=== PATIENT | male | born 1945 | race Caucasian/White ===

== ENCOUNTER 2020-01-14 22:35 | Inpatient (IN) | payer MEDICARE, BC ==
[2020-01-14] MEDS ORDERED: Aspirin 81 mg CHEW TAB* 81 MG TAB.CHEW PO ONE (22:46)
[2020-01-14] MEDS ORDERED: Nitroglycerin TAB 0.4 MG* 0.4 MG TAB ONE (22:46)
[2020-01-14] MEDS ORDERED: Heparin for STEMI(*) 5,000 UNITS/ML 1 ML VIAL IV ONE ×2 (22:46→22:47)
[2020-01-14] MEDS ORDERED: Aspirin 81 mg CHEW TAB* 81 MG TAB.CHEW ONE (22:46)
[2020-01-14] MEDS ORDERED: Morphine INJ* 10 MG/ML 1 ML CARPUJECT IV ONE (22:46)
[2020-01-14] MEDS ORDERED: nitroGLYCERIN DRIP* 25,000 MCG in PREMIX* 0 ML IV ONE (22:46)
[2020-01-14] MEDS ORDERED: Ticagrelor* 90 MG TAB PO ONE ×2 (22:46→22:47)
--- NOTE | 2020-01-14 22:50 | ED ---
HPI Chest Pain - HPI Summary HPI Summary: This pt is a 74 Y/O M presenting to [facility] with a CC of CP that began this morning when he woke up and has made him unable to ambulate. He states that the pain has been constant throughout the day. The pain worsened tonight at 2200 is currently rated a 10/10 he states that the pain has become diffuse. He states that he has had nausea, SOB, and chills without any vomiting or diaphoresis. He states no aggravating or alleviating factors. He states that he has a PMHx of cardiac disease but denies any PMHx of MIs. - History of Current Complaint Chief Complaint: EDChestPainROMI Time Seen by Provider: 01/14/20 22:42 Hx Obtained From: Patient Onset/Duration: Started Hours Ago, Still Present, Worse Since - onset Timing: Constant, Lasting Hours Initial Severity: Mild Current Severity: Severe Pain Intensity: 10 Pain Scale Used: 0-10 Numeric Chest Pain Location: Diffuse Chest Pain Radiates: No Aggravating Factor(s): Nothing Alleviating Factor(s): Nothing Associated Signs and Symptoms: Positive: Chest Pain, Shortness of Breath, Chills , Nausea. Negative: Diaphoresis, Vomiting - Additional Pertinent History Primary Care Physician: AIDEN - Allergy/Home Medications Allergies/Adverse Reactions: Allergies Allergy/AdvReac Type Severity Reaction Status Date / Time No Known Allergies Allergy Verified 04/18/16 17:10 PMH/Surg Hx/FS Hx/Imm Hx Previously Healthy: Yes Endocrine/Hematology History: Denies: Hx Diabetes Cardiovascular History: Reports: Hx Angina Denies: Hx Coronary Artery Disease, Hx Hypercholesterolemia, Hx Hypertension , Hx Myocardial Infarction, Hx Pacemaker/ICD, Hx Valvular Heart Disease Respiratory History: Denies: Hx Asthma, Hx Chronic Obstructive Pulmonary Disease (COPD) Musculoskeletal History: Reports: Hx Back Problems Sensory History: Reports: Hx Contacts or Glasses Denies: Hx Hearing Aid Opthamlomology History: Reports: Hx Contacts or Glasses Neurological History: Reports: Other Neuro Impairments/Disorders - dizziness Psychiatric History: Denies: Hx Panic Disorder - Cancer History Cancer Type, Location and Year: PROSTATE CA 2002 Hx Chemotherapy: No Hx Radiation Therapy: No - Surgical History Surgical History: Yes Surgery Procedure, Year, and Place: PROSTATECTOMY. TONSILS - Immunization History Immunizations Up to Date: Yes Infectious Disease History: Denies: Hx of Known/Suspected MRSA - Social History Occupation: Employed Full-time Lives: With Family Alcohol Use: Occasionally Hx Substance Use: No Substance Use Type: Reports: None Hx Tobacco Use: No Smoking Status (MU): Never Smoked Tobacco Review of Systems Positive: Chills. Negative: Skin Diaphoresis Positive: Chest Pain Positive: Shortness Of Breath Positive: Nausea. Negative: Vomiting All Other Systems Reviewed And Are Negative: Yes Physical Exam - Summary Physical Exam Summary: Constitutional: Well-developed, Well-nourished, Alert. (-) Distressed Skin: Warm, Dry HENT: Normocephalic; Atraumatic Eyes: Conjunctiva normal Neck: Musculoskeletal ROM normal neck. (-) JVD, (-) Stridor, (-) Tracheal deviation Cardio: Rhythm regular, rate normal, Heart sounds normal; Intact distal pulses; The pedal pulses are 2+ and symmetric. Radial pulses are 2+ and symmetric. (-) Murmur Pulmonary/Chest wall: Effort normal. (-) Respiratory distress, (-) Wheezes, (-) Rales Abd: Soft, (-) tenderness, (-) Distension, (-) Guarding, (-) Rebound Musculoskeletal: (-) Edema Lymph: (-) Cervical adenopathy Neuro: Alert, Oriented x3 Psych: Mood and affect Normal Triage Information Reviewed: Yes Vital Signs On Initial Exam: Temp Pulse Resp BP SpO2 FiO2 97.2 F 60 19 158/96 92 01/14/20 22:45 01/14/20 22:45 01/14/20 22:45 01/14/20 22:45 01/14/20 22:45 Vital Signs Reviewed: Yes Procedures - Sedation Patient Received Moderate/Deep Sedation with Procedure: No Diagnostics - Laboratory Result Diagrams: 01/16/20 04:35 01/17/20 04:29 Lab Statement: Any lab studies that have been ordered have been reviewed, and results considered in the medical decision making process. - Radiology CXR Radiology Interpretation Completed By: ED Physician Summary of Radiographic Findings: No acute processes. Pending offical review. - EKG 2240 Cardiac Rate: NL - [address] Segment: Other - elevation V1-V3 with Q waves in V2 and V3 Summary of EKG Findings: EKG at 2240 shows Sinus arrhythmia at a rate of [address] elevations in leads V1-V3 with Q waves in V2 and V3. This is an acute STEMI with no reciprocal depressions. Interpreted by Dr. Ortiz at 01/14/2020 2241. Chest Pain Course/Dx - Course Course Of Treatment: This pt is a 74 Y/O M presenting to [facility] with a CC of CP that began this morning when he woke up and has made him unable to ambulate. He states that the pain has been worsening throughout the day and is currently rated a 10/10. He states that he has had nausea, SOB, and chills without any vomiting or diaphoresis. His PE found no acute abnormalities. EKG at 2240 shows Sinus arrhythmia at a rate of [address] elevations in leads V1-V3 with Q waves in V2 and V3. This is an acute STEMI with no reciprocal depressions. Upon arrival to [facility] a STEMI was called at 224 and the pt was immediately given the following medications: ASA 324 mg, Nitro, Morphine, Heparin, and Brilinta. CXR shows no acute processes. Dr. Moreau, coding clerks supervisor , was consulted at 2250 and agreed with the current plan of care. He stated that he will be present in the ED to see the pt. He admitted the pt for further work up at 2319. His Dx is an anterior wall STEMI. - Diagnoses Provider Diagnoses: ST elevation myocardial infarction (STEMI) of anterior wall During the Visit The Following Alert/Code Occurred: STEMI - 2244 - Provider Notifications Discussed Care Of Patient With: Flako Moreau Time Discussed With Above Provider: 23:02 Instructed by Provider To: Admit As Inpatient Admit/Transition Orders Completed By ED Provider: Yes - Critical Care Time Critical Care Time: 30-74 min - 30 minutes Discharge ED - Sign-Out/Discharge Documenting (check all that apply): Patient Departure - admitted - Discharge Plan Condition: Stable Disposition: ADMITTED TO [facility] - Billing Disposition and Condition Condition: STABLE Disposition: Admitted to [facility] - Attestation Statements Document Initiated by Logan: Yes Documenting Scribe: Steffen Loera Provider For Whom Logan is Documenting (Include Credential): Mauricio Ortiz MD Scribe Attestation: Steffen Jorgensen scribed for Mauricio Ortiz MD on 01/18/20 at 1920. Scribe Documentation Reviewed: Yes Provider Attestation: The documentation as recorded by the Steffen atkins accurately reflects the service I personally performed and the decisions made by me, Mauricio Ortiz MD Status of Logan Document: Viewed
[2020-01-14] MEDS ORDERED: Morphine 10 MG/ML VIAL (1 ml) ONE (22:55)
[2020-01-14] MEDS ORDERED: Morphine 10 MG/ML VIAL (1 ml) IV ONE (22:57)
[2020-01-14 22:59] LABS: ABS Eosinophils 0.1 10^3/ul (0-0.6); ABS Lymphocytes 1.3 10^3/ul (1.0-4.8); ABS Monocytes 0.8 10^3/ul (0-0.8); ABS Neutrophils 7.7 10^3/ul (1.5-7.7); Eosinophil % 1.3 %; Hematocrit 47 % (42-52); Hemoglobin 16.3 g/dL (14.0-18.0); Lymphocyte % 12.8 %; Mean Corpuscular HGB Conc 35 g/dL (31-36); Mean Corpuscular Hemoglobin 32 pg (27-31); Mean Corpuscular Volume 92 fL (80-94); Mean Platelet Volume 10.6 fL (7.4-10.4); Nucleated Red Blood Cells % 0.1; Platelet Count 167 10^3/uL (150-450); Red Blood Count 5.11 10^6 /uL (4.18-5.48); Red Cell Distribution Width 13 % (10-15); White Blood Count 9.9 10^3/uL (3.5-10.8)
[2020-01-14] MEDS ORDERED: Heparin(*) 1000 UNIT/ML 10 ML VIAL CATH LAB IV ONE (23:05)
[2020-01-14] MEDS ORDERED: VERAPAMIL 2.5 MG/ML 2 ML VIAL ** 5 mg/2 ml ONE (23:05)
[2020-01-14] MEDS ORDERED: Lidocaine 1% INJ* 10 MG/ML 30 ML SDV ONE (23:06)
[2020-01-14] MEDS ORDERED: nitroGLYCERIN DRIP* 25,000 MCG/250 ML BTL ONE (23:06)
[2020-01-14] MEDS ORDERED: Heparin 2 UNITS/ML IVPREMIX* 3,000 ML IV ONE (23:06)
[2020-01-14 23:08] LABS: Activated Partial Thrombo Time 31.1 seconds (26.0-38.0); INR 1.07 (0.82-1.09)
[2020-01-14 23:17] LABS: Albumin 4.5 g/dL (3.2-5.2); CO2 Carbon Dioxide 28 mmol/L (22-32); Calcium 9.8 mg/dL (8.6-10.3); Chloride 99 mmol/L (101-111); Sodium 138 mmol/L (135-145)
[2020-01-14 23:22] LABS: CKMB ng/mL 14.6 ng/mL (0.6-6.3)
[2020-01-14 23:23] LABS: ALT 16 U/L (7-52); Albumin/Globulin Ratio 1.4 (1-3); Alkaline Phosphatase 70 U/L (34-104); BUN/Creatinine Ratio 14.2 (8-20); Blood Urea Nitrogen 17 mg/dL (6-24); EGFR African American 71.2 (>60); EGFR Non-African American 58.9 (>60); Globulin 3.2 g/dL (2-4); Glucose 131 mg/dL (70-100); LDL Cholesterol Direct 132 mg/dL; Total Protein 7.7 g/dL (6.4-8.9); Troponin I 0.55 ng/mL (<0.03)
[2020-01-14] MEDS ORDERED: Ondansetron INJ* 2 MG/ML VIAL ONE (23:32)
[2020-01-14] MEDS ORDERED: fentaNYL* 50 MCG/ML 2 ML VIAL (100 MCG VIAL) ONE (23:32)
[2020-01-14] MEDS ORDERED: Midazolam* 1 MG/ML 5 ML VIAL (5 MG) ONE (23:32)
[2020-01-14 23:56] LABS: AST 23 U/L (13-39); Anion Gap 11 mmol/L (2-11); Potassium 4.3 mmol/L (3.5-5.0)
[2020-01-14] MEDS ORDERED: Iohexol 300 (CONTRAST) 10 ML SDV ONE (23:57)
[2020-01-15] MEDS ORDERED: Iodixanol 320 (CONTRAST) 100 ML SDV ONE (00:09)
[2020-01-15] MEDS ORDERED: Bivalirudin(*) 250 MG VIAL ONE (00:19)
[2020-01-15] MEDS ORDERED: Zolpidem TAB* 5 MG PO PRN (00:32)
[2020-01-15] MEDS ORDERED: Docusate CAP* 100 MG PO PRN (00:32)
[2020-01-15] MEDS ORDERED: Ondansetron INJ* 2 MG/ML VIAL IV PRN (00:32)
[2020-01-15] MEDS ORDERED: Acetaminophen TAB* 325 MG PO PRN (00:32)
[2020-01-15] MEDS ORDERED: Nitroglycerin TAB 0.4 MG* 0.4 MG TAB SL PRN (00:32)
[2020-01-15] MEDS ORDERED: Atorvastatin* 80 MG TAB PO ONE (00:38)
[2020-01-15] MEDS ORDERED: NS 0.9% 1000 ML** 1,000 ML IV SCH (00:45)
[2020-01-15 01:39] LABS: CKMB ng/mL > 303.0 ng/mL (0.6-6.3)
[2020-01-15 01:41] LABS: Troponin I > 81.00 ng/mL (<0.03)
[2020-01-15 02:12] LABS: Creatine Kinase 3267 U/L (10-223)
[2020-01-15] MEDS: CAPTopril TAB* 12.5 MG TAB PO SCH ×4 (02:33→20:02)
--- NOTE | 2020-01-15 02:46 | HP ---
CC: Dr. Óscar Almazan MD; Dr. Jasmin Caicedo * ADMISSION HISTORY AND PHYSICAL: DATE OF ADMISSION: 01/15/20 CHIEF COMPLAINT: The patient with chest discomfort presentation with acute ST- segment elevation anterior wall myocardial infarction. HISTORY OF PRESENT ILLNESS: The patient is a 74-year-old gentleman with no prior known cardiac history. Specifically, he denied any history of myocardial infarction, congestive heart failure, or significant heart rhythm disturbances. The patient states he was in his usual state of health and this morning at 6:30 while he was doing a walk with his , he developed a 30- to 40-minute episode of chest discomfort without significant radiation with some shortness of breath, although it was difficult to assess as he has felt he has had shortness of breath chronically in the past. He had no diaphoresis but did have some mild nauseousness. There was no radiation to the throat, jaw, or the arms or the back. When he came home and rested, it eventually did stop. He then had another episode while he was walking at 3:30 p.m., lasting about 15 to 20 minutes, 6:15 p.m. when he was walking. At 7:15 at home, after eating he lied down, started having the symptoms but by 8:15, it had gotten to a more significant degree. Unfortunately, he did not seek medical attention at that time and presented to the emergency room at [facility], having been brought in by his at 10:35 p.m. An EKG was obtained and he was found to have an ST-segment elevation anterior wall myocardial infarction. As such, a STEMI alert was called. In the emergency room, he was still having ongoing symptoms. He received 180 mg of Brilinta, 4000 unit bolus of heparin, and full dose of aspirin. He stated he thought he was feeling slightly better but still had the persistent symptoms. During the course in the emergency room, he became more diaphoretic and felt nauseous. The risks and benefits of cardiac catheterization were explained to him and he wished to proceed to go for emergency cardiac catheterization and possible PCI. CARDIAC RISK FACTORS: Include a negative history of hypertension, negative history of diabetes, negative history of increased cholesterol, no smoking history, no family history of early heart disease. PAST MEDICAL HISTORY: Significant for prostate cancer, which was treated with surgery and radiation. MEDICATIONS: He currently only takes vitamins 1 a day. FAMILY HISTORY: Noncontributory. SOCIAL HISTORY: He does not smoke. He occasionally drinks alcohol. 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 PHYSICAL EXAMINATION GENERAL: When I see him in the emergency room reveals a pleasant gentleman in mild distress with ongoing chest discomfort. VITAL SIGNS: Initially revealed blood pressure 158/96, pulse was 78 when nitroglycerin was started intravenously. O2 saturation was 94%. NECK: Supple with no increased JVP. LUNGS: Had no active rales, rhonchi, or wheezes. HEART: Revealed no visible heaves. No palpable heaves or thrills. Normal S1, S2 with no significant systolic or diastolic murmur. ABDOMEN: Soft, nontender. EXTREMITIES: Without edema. Peripheral pulses were intact. Femoral pulse noted without bruit. MUSCULOSKELETAL: The patient moves all extremities appropriate. NEUROLOGIC: The patient is alert, oriented with normal mentation. PSYCHOLOGICAL: The patient with appropriate affect. DIAGNOSTIC STUDIES/LAB DATA: EKG revealed sinus rhythm, heart rate [address]-segment elevation in V1 through V4 with Q waves already in V1 through V3, and mild ST-segment depression in III and aVF. Laboratory results were initially pending at the time the patient was examined in the emergency room. OVERALL ASSESSMENT: The patient presents with acute ST-segment elevation anterior wall myocardial infarction, unfortunately, several hours already into it. By the time we are now seeing him, clearly approaching 4 hours timed by the 7:15 episode where he felt it started again. It did become more severe at 8 :15. The appropriate medications have been given. The risks and benefits of cardiac catheterization were explained, he understood them and wished to proceed. Further management will be made pending results of the cardiac catheterization. [id number]/[facility] #: [id number] [facility] CENTERIzabel
[2020-01-15 04:38] LABS: ABS Lymphocytes 0.7 10^3/ul (1.0-4.8); ABS Monocytes 0.9 10^3/ul (0-0.8); ABS Neutrophils 10.9 10^3/ul (1.5-7.7); Eosinophil % 0.1 %; Hematocrit 44 % (42-52); Hemoglobin 14.8 g/dL (14.0-18.0); Lymphocyte % 5.6 %; Mean Corpuscular HGB Conc 34 g/dL (31-36); Mean Corpuscular Hemoglobin 31 pg (27-31); Mean Corpuscular Volume 92 fL (80-94); Mean Platelet Volume 10.6 fL (7.4-10.4); Platelet Count 140 10^3/uL (150-450); Red Blood Count 4.73 10^6 /uL (4.18-5.48); Red Cell Distribution Width 14 % (10-15); White Blood Count 12.5 10^3/uL (3.5-10.8)
[2020-01-15 04:57] LABS: Albumin 3.8 g/dL (3.2-5.2); CO2 Carbon Dioxide 25 mmol/L (22-32); Calcium 8.4 mg/dL (8.6-10.3); Chloride 105 mmol/L (101-111); Sodium 136 mmol/L (135-145)
[2020-01-15 05:03] LABS: ALT 88 U/L (7-52); Albumin/Globulin Ratio 1.4 (1-3); Alkaline Phosphatase 58 U/L (34-104); BUN/Creatinine Ratio 15.4 (8-20); Blood Urea Nitrogen 16 mg/dL (6-24); Cholesterol 165 mg/dL; EGFR Non-African American 69.4 (>60); Globulin 2.8 g/dL (2-4); Glucose 121 mg/dL (70-100); LDL Cholesterol 101 mg/dL; Total Protein 6.6 g/dL (6.4-8.9); Triglycerides 64 mg/dL
[2020-01-15] MEDS ORDERED: Metoprolol Tartrate TAB* 25 MG ONE (05:04)
[2020-01-15 05:43] LABS: Anion Gap 6 mmol/L (2-11)
[2020-01-15 05:46] LABS: CKMB ng/mL > 303.3 ng/mL (0.6-6.3)
[2020-01-15 05:53] LABS: Creatine Kinase 4465 U/L (10-223)
[2020-01-15 06:22] LABS: Magnesium 1.8 mg/dL (1.9-2.7); Potassium Redraw 4.3 mmol/L (3.5-5.0)
[2020-01-15] MEDS ORDERED: Magnesium Sulfate 2 GM IV (Premix) IVPB ONE (06:24)
[2020-01-15 06:28] LABS: AST Redraw 527 U/L (13-39)
[2020-01-15] MEDS ORDERED: Magnesium Sulfate 2 GM IV* 2 GM/50 ML BAG ONE (06:38)
[2020-01-15 06:56] LABS: Troponin I > 81.00 ng/mL (<0.03)
[2020-01-15] MEDS ORDERED: Metoprolol Tartrate TAB* 25 MG PO SCH (09:00)
[2020-01-15] MEDS ORDERED: Perflutren Lipid Microsphere* 3 ML VIAL ONE (09:28)
[2020-01-15] MEDS: Ticagrelor* 90 MG TAB PO SCH ×2 (09:42→20:02)
[2020-01-15] MEDS: Aspirin 81 mg CHEW TAB* 81 MG TAB.CHEW PO SCH (09:42)
--- NOTE | 2020-01-15 10:10 | ECHO ---
*[facility]* [place] [address] Fax #: [phone] Transthoracic Echocardiogram Patient: Luís Brown : 1945 Study Date: 01/15/2020 Age: 74 Gender: M HR: 55 bpm Height: 70 in /177.8 cm BSA: 2.16 m^2 Weight: 215.6 lb /98 kg BMI: 31 kg/m^2 *Hatch Tender: * Dunia Sparrow [facility] *Referring Physician: * Flako Moreau MD *Reading Physician: * Ricky Hough MD Indications: Myocardial Infarction (new). History: Prostate Cancer. Labs, prior tests, procedures, and surgery: Catheterization with coronary intervention. Performed during the current admission. 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 Conclusions Summary: - Left ventricle: Systolic function is moderately reduced. The estimated ejection fraction is 30-35%. - Regional wall motion abnormality: Dyskinesis of the apical myocardium; akinesis of the apical anterior myocardium; severe hypokinesis of the mid anterior, mid anteroseptal, and apical lateral myocardium; mild hypokinesis of the apical septal myocardium. - Right ventricle: Systolic function is low normal. Systolic pressure is within the normal range. - Mitral valve: There is trace to mild regurgitation. - Aortic valve: There is no evidence of stenosis. There is trace regurgitation. - Tricuspid valve: There is trace to mild regurgitation. - Pericardium, extracardiac: There is no significant pericardial effusion. - Compared to study of04/19/16, the left ventricle dysfunction is new Study data: Transthoracic echocardiogram. Procedure: Transthoracic echocardiography was performed. Image quality was fair. Intravenous Definity , 3 mlswas administered. Complete 2D, spectral Doppler, and color flow Doppler. Location: ICU Patient status: Inpatient. Patient room number: ICU-03. Rhythm: Bradycardia. Findings Left ventricle: The cavity size is normal. Wall thickness is mildly increased. Systolic function is moderately reduced. The estimated ejection fraction is 30-35%. Regional wall motion abnormalities: Hypokinesis of the mid-apicalanteroseptal and inferior myocardium. Hypokinesis of the apicalanterior myocardium. Hypokinesis of the mid-apicalinferoseptal myocardium. Dyskinesis of the apical myocardium; akinesis of the apical anterior myocardium; severe hypokinesis of the mid anterior, mid anteroseptal, and apical lateral myocardium; mild hypokinesis of the apical septal myocardium. There is no consistent Doppler evidence of clinically significant diastolic dysfunction. Right ventricle: The cavity size is mildly dilated. Systolic function is low normal. Systolic pressure is within the normal range. Left atrium: The atrium is mildly to moderately dilated. Right atrium: The atrium is normal in size. Mitral valve: The posterior mitral valve annulus appears calcified. The leaflets are mildly thickened. There is no evidence of stenosis. There is trace to mild regurgitation. Aortic valve: The valve is trileaflet. The leaflets are mildly thickened. Thickening, consistent with sclerosis. There is no evidence of stenosis. There is trace regurgitation. Tricuspid valve: The leaflets are normal thickness. There is no evidence of stenosis. There is trace to mild regurgitation. Pulmonic valve: The leaflets are normal thickness. There is no evidence of stenosis. There is trace regurgitation. Aorta: Aortic root: The aortic root is upper normal in size. Ascending aorta: The ascending aorta is appears normal. Aortic arch: The aortic arch is appears normal. Pericardium: There is no significant pericardial effusion. Pulmonary arteries: The main pulmonary artery is normal-sized. Systolic pressure is within the normal range. Systemic veins: Inferior vena cava: The vessel is dilated. There is (>= 50%) respiratory change in the IVC dimension. Measurements Left ventricle Value Ref Aortic valve Value Ref NICK, LAX 4.7 cm 4.2 - 5.8 Hussain diam, ED 2.1 cm ----- ESD, LAX 3.2 cm 2.5 - 4.0 Peak v, S 1.42 m/sec ----- FS, LAX 31 % 25 - 43 VTI, S 30.0 cm ----- PW, ED, LAX (H) 1.2 cm 0.6 - 1.0 Mean grad, S 5.0 mm Hg ----- FS 31 % 25 - 43 Peak grad, S 8.0 mm Hg ----- PW, ED (H) 1.2 cm 0.6 - 1.0 LVOT/AV, VTI ratio 0.63 ----- E', lat hussain, TDI 10.4 cm/sec >=10.0 VANE, VTI 1.99 cm^2 --- -- E/e', lat hussain, 4 VANE, Vmax 2.06 cm^2 ----- TDI E', med hussain, TDI (L) 5.8 cm/sec >=7.0 Mitral valve Value Ref E/e', med hussian, 7 Peak E 0.43 m/sec ----- TDI Peak A 0.33 m/sec ----- E', avg, TDI 8.1 cm/sec Decel time 486 ms ----- E/e', avg, TDI 5 <=14 Peak E/A ratio 1.3 --- -- LVOT Value Ref Pulmonic valve Value Ref Diam, S 2.00 cm Peak v, S 0.72 m/sec ----- Area 3.1 cm^2 Peak grad, S 2.0 mm Hg ----- Peak constantin, S 0.93 m/sec VTI, S 19.0 cm Tricuspid valve Value Ref Mean grad, S 2 mm Hg TR peak v 2.3 m/sec <=2.8 SV 59 ml Peak RV-RA grad, S 21 mm Hg ----- SV/bsa 27 ml/m^2 Aortic root Value Ref Ventricular septum Value Ref Root diam 3.6 cm <4.3 IVS, ED (H) 1.1 cm 0.6 - 1.0 Ascending aorta Value Ref Right ventricle Value Ref AAo AP diam, S 3.1 cm ----- NICK, LAX 3.6 cm NICK minor ax, A4C (H) 4.0 cm 1.9 - 3.5 Aortic arch Value Ref mid Arch diam 2.8 cm ----- Pressure, S 29 mm Hg Decending aorta Value Ref Left atrium Value Ref Nuris peak constantin 0.43 m/sec ----- AP dim, ES (H) 4.50 cm 3.00 - 4.00 Pulmonary artery Value Ref ML dim, A4C 4.6 cm Pressure, S 27.0 mm Hg ----- SI dim, A4C 5.6 cm Vol/bsa, ES, 1-p 31 ml/m^2 12 - 37 Inferior vena cava Value Ref A4C Diam 2.1 cm ----- Vol/bsa, ES, A/L (H) 40 ml/m^2 16 - 34 Right atrium Value Ref SI dim, ES 4.9 cm 3.4 - 5.3 ML dim, ES, A4C 3.5 cm 2.6 - 4.4 Estimated RAP 8 mm Hg Legend: (L) and (H) vy values outside specified reference range. Prepared and electronically signed by Ricky Hough MD 01/15/2020 10:09
--- NOTE | 2020-01-15 11:11 | CATH ---
cc: Dr. Almazan; Dr. Caciedo* CARDIAC CATHETERIZATION AND INTERVENTIONAL REPORT: DATE OF PROCEDURE: 01/14/20 INDICATION FOR THE PROCEDURE: The patient with a somewhat late presentation ST segment elevation anterior wall myocardial infarction. CONSENT: The patient was interviewed and examined in the emergency room where the risks and benefits were explained. He understood and wished to proceed. APPROACH UTILIZED: The right radial artery was assessed for size and found to be acceptable for an approach. PRE-CARDIAC CATHETERIZATION LABORATORY RESULTS: Pending due to the emergent nature of the procedure. At the end of the case, laboratory results revealed hemoglobin and hematocrit of 16.3 and 47 with a platelet count of 167,000. BUN and creatinine of 17 and 1.2. Sodium 138, potassium 4.3, chloride 99, bicarb 28. INR of 1.07. Troponin was 0.55. CK-MB was 14.6. EQUIPMENT UTILIZED: 1. Right radial artery sheath - a 6-Latvian Glidesheath Slender. 2. Diagnostic guidewire was a Wholey 145 length to negotiate mild tortuosity in forearm area as well as a Vásquez 260 for all catheter exchanges. 3. Diagnostic catheter included a TIG4 curved 5-Latvian catheter for the left coronary artery and a 5-Latvian FR4 curved for the right coronary artery. 4. Guide catheter utilized with a VL4 curved 6-Latvian guide catheter. 5. Interventional guidewire utilized was a 190 cm length All Star guidewire. 6. Initial balloon angioplasty catheter utilized was a 2.5 mm x 15 mm long Emerge balloon. 7. Stent utilized was a 3.5 x 28 mm long Synergy drug-eluting stent. 8. Post-stent deployment balloon angioplasty catheter - was a 3.5 x 12 mm long NC Emerge balloon. 9. Closure device utilized was a regular length Vasc Band. MEDICATIONS GIVEN: The patient already received in the emergency room 4000 units of heparin in addition to full dose aspirin 324 mg and 180 mg of Brilinta orally. The patient in the r&d lab technician received a radial artery cocktail of 300 mcg of nitroglycerin, 3 mg of verapamil and 1% lidocaine for local anesthesia. Of note, a CT was checked and found to be low and as such an Angiomax bolus and Angiomax drip was given before the interventional portion of the case. DESCRIPTION OF PROCEDURE: The patient was brought to the cardiovascular lab where a formal time-out was performed. He was prepped and draped in sterile fashion and under ultrasound guidance the right radial artery was cannulated and the sheath was placed. Coronary arteriography was performed. The decision was then made to intervene into the totally occluded proximal to mid left anterior descending artery. A guide catheter views were obtained and the guidewire was negotiated down the left anterior descending artery initially into a diagonal branch and then repositioned into the left anterior descending artery. Balloon angioplasty was performed followed by stent delivery. Post stent delivery balloon inflations were made to high pressures utilizing the NC Emerge balloon. Following this, the artery was assessed both with the wire in place and wire removed. Further injections were made throughout the case to assess the circumflex artery to obtain more views. Following this, left heart catheterization was performed and left ventriculography was performed utilizing a total of 24 cc of Visipaque dye at a rate of 12 cc/second. The cath was then pulled back across the aortic valve to recheck gradient. At the end of the case, the catheter and sheath were removed and hemostasis was obtained with a Vasc Band. The reverse Barbeau was a B. The total contrast used was 200 cc of Omnipaque dye and 24 cc of Visipaque dye. The radiation exposure included 12.2 minutes of fluoro time. The air kerma radiation was 3571 milligray. The DAP radiation was 20,286 microgray per meter square. RESULTS: HEMODYNAMIC DATA: Left heart catheterization revealed central aortic pressure recorded at 98/ 61 with a mean of 79, left ventricular pressure was 100/left ventricular end diastolic pressure of 29. LEFT VENTRICULOGRAPHY: Performed in the GONZALES projection was a somewhat suboptimal injection, however , there was severe hypo to akinesis of the mid anterior, anterior apical and distal inferior wall with preservation of the proximal inferior and the proximal anterior wall. The overall ejection fraction appeared to be in the range of 25% to 30%. Of note, this was difficult to assess due to the somewhat suboptimal injection. CORONARY ARTERIOGRAPHY: A. Right coronary artery - a nondominant vessel supplying 2 acute marginal branches of the right coronary artery, no significant obstruction was noted. B. Left coronary artery: 1. Left main - widely patent. 2. Left anterior descending artery totally occluded. After a high septal meat and seafood clerk and a high first diagonal branch. On reconstitution of the vessel, the [id number] vessel had mild luminal irregularities, but no critical obstruction noted. The LAD supplied multiple diagonal branches somewhat smaller in caliber and wrapped around the apical region onto the distal inferior wall. 3. Circumflex - a dominant vessel supplying a very thin trifurcation marginal branch followed by multiple obtuse marginal branches and eventually a left-sided posterior descending artery. There were mild luminal irregularities , but no significant obstruction seen throughout the circumflex artery. INTERVENTION INTO MID LEFT ANTERIOR DESCENDING ARTERY: - Successful reconstitution of the totally occluded beginning of the mid portion of the LAD with balloon angioplasty and stent placement utilizing a 3.5 x 28 mm Synergy drug-eluting stent post dilated to 3.65 to 3.7 with LACI 3 flow with no dissection seen and 0% residual stenosis. Of note, there was a very small diagonal branch that had LACI 2 flow in it, however, there was brisk LACI 3 flow throughout the rest of the left anterior descending artery. OVERALL ASSESSMENT: Significant left ventricular systolic dysfunction segmental in nature to the mid apical anterior apex and distal inferior wall as described above with evidence of decreased left ventricular diastolic compliance with increased left ventricular end-diastolic pressure. Successful intervention into totally occluded proximal LAD as described above utilizing balloon angioplasty and placement of a 3.5 x 28 mm long Synergy drug-eluting stent post dilated to 3.65 to 3.7 mm. The patient will be maintained on dual antiplatelets for minimum of a year, possibly longer in addition to instituting high-dose statin therapy, beta- lauryn therapy, and MARY inhibition as blood pressure allows. Consideration for starting Aldactone may be made as well. An echocardiogram will be obtained for further assessment of the LV function and consideration may have to be made to a LifeVest given the severe left ventricular systolic dysfunction until an appropriate amount of time shows whether or not reversal of left ventricular systolic dysfunction occurs. Given the fact that this was a somewhat late presentation with discomfort on and off throughout the day and at least 3 to 4 hours of continuous chest discomfort before able to get to opening the artery. I anticipate there will be significant enzyme elevation. [id number]/[facility] #: [id number] [facility] CENTERIzabel
[2020-01-15 13:55] LABS: CKMB ng/mL > 297.0 ng/mL (0.6-6.3); Troponin I > 81.00 ng/mL (<0.03)
[2020-01-15 15:58] LABS: Creatine Kinase 3258 U/L (10-223)
[2020-01-15] MEDS: Atorvastatin* 80 MG TAB PO SCH (17:46)
[2020-01-15] MEDS: Enoxaparin(*) 40 MG/0.4 ML SYR SUBCUT SCH (17:46)
[2020-01-15 17:54] LABS: CKMB ng/mL 272.9 ng/mL (0.6-6.3)
[2020-01-15 18:03] LABS: Troponin I > 81.00 ng/mL (<0.03)
[2020-01-15 18:22] LABS: Creatine Kinase 2458 U/L (10-223)
[2020-01-15] MEDS: Metoprolol Tartrate TAB* 25 MG PO SCH (20:03)
[2020-01-15] MEDS ORDERED: Melatonin 3 MG TAB PO SCH (23:00)
[2020-01-16 04:42] LABS: ABS Basophils 0.1 10^3/ul (0-0.2); ABS Eosinophils 0.2 10^3/ul (0-0.6); ABS Lymphocytes 0.9 10^3/ul (1.0-4.8); ABS Monocytes 0.8 10^3/ul (0-0.8); ABS Neutrophils 8.8 10^3/ul (1.5-7.7); Eosinophil % 1.5 %; Hematocrit 42 % (42-52); Hemoglobin 14.3 g/dL (14.0-18.0); Lymphocyte % 8.2 %; Mean Corpuscular HGB Conc 34 g/dL (31-36); Mean Corpuscular Hemoglobin 32 pg (27-31); Mean Corpuscular Volume 93 fL (80-94); Mean Platelet Volume 10.3 fL (7.4-10.4); Platelet Count 112 10^3/uL (150-450); Red Blood Count 4.49 10^6 /uL (4.18-5.48); Red Cell Distribution Width 13 % (10-15); White Blood Count 10.7 10^3/uL (3.5-10.8)
[2020-01-16 04:58] LABS: Anion Gap 8 mmol/L (2-11); BUN/Creatinine Ratio 17.3 (8-20); Blood Urea Nitrogen 23 mg/dL (6-24); CO2 Carbon Dioxide 21 mmol/L (22-32); Calcium 8.1 mg/dL (8.6-10.3); Chloride 104 mmol/L (101-111); EGFR African American 63.3 (>60); EGFR Non-African American 52.3 (>60); Glucose 108 mg/dL (70-100); Potassium 4.2 mmol/L (3.5-5.0); Sodium 133 mmol/L (135-145)
[2020-01-16 08:18] LABS: ALT 64 U/L (7-52); AST 221 U/L (13-39); Albumin 3.5 g/dL (3.2-5.2); Albumin/Globulin Ratio 1.4 (1-3); Alkaline Phosphatase 53 U/L (34-104); Creatine Kinase 1129 U/L (10-223); Globulin 2.5 g/dL (2-4); Indirect Bilirubin 0.8 mg/dL (0.3-1.0); Magnesium 1.8 mg/dL (1.9-2.7)
[2020-01-16 08:22] LABS: CKMB ng/mL 66.4 ng/mL (0.6-6.3); Troponin I 78.63 ng/mL (<0.03)
[2020-01-16] MEDS: Aspirin 81 mg CHEW TAB* 81 MG TAB.CHEW PO SCH (09:01)
[2020-01-16] MEDS: Ticagrelor* 90 MG TAB PO SCH ×2 (09:01→20:53)
[2020-01-16] MEDS: CAPTopril TAB* 12.5 MG TAB PO SCH ×3 (09:04→20:54)
[2020-01-16] MEDS: Metoprolol Tartrate TAB* 25 MG PO SCH (09:04)
--- NOTE | 2020-01-16 09:22 | PN ---
Subjective Date of Service: 01/16/20 - late presenting anterior STEMI Interval History: No events last night, patient is anxious to get out of bed and ambulate. His is at his bedside. Offers no complaints, denies chest pain, sob, dizziness , excessive fatigue. Medications Active Medications: Acetaminophen (Tylenol Tab*) 650 mg PO Q4H PRN PRN Reason: PAIN - MILD Aspirin (Aspirin 81 Mg Chew Tab*) 81 mg PO DAILY [facility] Last Admin: 01/16/20 09:01 Dose: 81 mg Atorvastatin Calcium (Lipitor*) 80 mg PO 1700 [facility] Last Admin: 01/15/20 17:46 Dose: 80 mg Captopril (Capoten Tab*) 6.25 mg PO TID [facility] Last Admin: 01/16/20 09:04 Dose: Not Given Docusate Sodium (Colace Cap*) 100 mg PO DAILY PRN PRN Reason: CONSTIPATION Enoxaparin Sodium (Lovenox(*)) 40 mg SUBCUT Q24H [facility] Last Admin: 01/15/20 17:46 Dose: 40 mg Melatonin (Melatonin) 3 mg PO QPM [facility] Last Admin: 01/15/20 22:35 Dose: 3 mg Metoprolol Tartrate (Lopressor Tab*) 12.5 mg PO Q12H [facility] Last Admin: 01/16/20 09:04 Dose: Not Given Nitroglycerin (Nitroglycerin Tab 0.4 Mg*) 0.4 mg SL Q5M PRN PRN Reason: ANGINA Ondansetron HCl (Zofran Inj*) 4 mg IV Q4H PRN PRN Reason: NAUSEA Ticagrelor (Brilinta*) 90 mg PO BID [facility] Last Admin: 01/16/20 09:01 Dose: 90 mg Zolpidem Tartrate (Ambien Tab*) 5 mg PO BEDTIME PRN PRN Reason: INSOMNIA Objective Vital Signs: Temp Pulse Resp BP Pulse Ox 98.3 F 68 22 92/61 91 01/16/20 08:00 01/16/20 09:00 01/16/20 09:00 01/16/20 09:00 01/16/20 09:00 Oxygen Devices in Use Now: None Appearance: sitting upright in bed, NAD, A+Ox3 Eyes: PERRLA Ears/Nose/Mouth/Throat: NL Teeth, Lips, Gums, Clear Oropharnyx Neck: NL Appearance and Movements; NL JVP, Trachea Midline Respiratory: Symmetrical Chest Expansion and Respiratory Effort, Clear to Auscultation Cardiovascular: NL Sounds; No Murmurs; No JVD, RRR, No Edema Abdominal: NL Sounds; No Tenderness; No Distention Extremities: No Edema, - - right radial access site intact, 3+ radial pulse, no hematoma, non tender to palpation. Skin: No Rash or Ulcers Neurological: Alert and Oriented x 3 Lines/Tubes/Other Access: Clean, Dry and Intact Peripheral IV Laboratory Results: 01/16/20 04:35 01/16/20 04:35 INR (Anticoag Therapy) 1.07 (0.82-1.09) 01/14/20 22:47 APTT 28.5 seconds (26.0-38.0) 01/16/20 04:35 Total Bilirubin 0.90 mg/dL (0.2-1.0) 01/16/20 04:35 Direct Bilirubin 0.10 mg/dL (0.03-0.18) 01/16/20 04:35 Indirect Bilirubin 0.8 mg/dL (0.3-1.0) 01/16/20 04:35 AST 221 U/L (13-39) H 01/16/20 04:35 ALT 64 U/L (7-52) H 01/16/20 04:35 Alkaline Phosphatase 53 U/L (34-104) 01/16/20 04:35 CK-MB (CK-2) 66.4 ng/mL (0.6-6.3) H 01/16/20 04:35 B-Natriuretic Peptide 214 pg/mL (<=100) H 01/14/20 22:47 Total Protein 6.0 g/dL (6.4-8.9) L 01/16/20 04:35 Albumin 3.5 g/dL (3.2-5.2) 01/16/20 04:35 Globulin 2.5 g/dL (2-4) 01/16/20 04:35 Albumin/Globulin Ratio 1.4 (1-3) 01/16/20 04:35 Triglycerides 64 mg/dL 01/15/20 04:26 Cholesterol 165 mg/dL 01/15/20 04:26 LDL Cholesterol 101 mg/dL 01/15/20 04:26 HDL Cholesterol 51.0 mg/dL 01/15/20 04:26 01/14/20 01/15/20 01/15/20 22:47 01:09 05:53 Troponin I 0.55 H* > 81.00 H* > 81.00 H* 01/15/20 01/15/20 01/16/20 13:16 17:23 04:35 Troponin I > 81.00 H* > 81.00 H* 78.63 H* Laboratory Results - last 24 hr 01/15/20 01/15/20 01/16/20 13:16 17:23 04:35 WBC RBC Hgb Hct MCV MCH MCHC RDW Plt Count MPV Neut % (Auto) Lymph % (Auto) [place] % (Auto) Eos % (Auto) Baso % (Auto) Absolute Neuts (auto) Absolute Lymphs (auto) Absolute Monos (auto) Absolute Eos (auto) Absolute Basos (auto) Absolute Nucleated RBC Nucleated RBC % APTT 28.5 Sodium Potassium Chloride Carbon Dioxide Anion Gap BUN Creatinine Est GFR ( Amer) Est GFR (Non-Af Amer) BUN/Creatinine Ratio Glucose Calcium Magnesium Total Bilirubin Direct Bilirubin Indirect Bilirubin AST ALT Alkaline Phosphatase Total Creatine Kinase 3258 H 2458 H CK-MB (CK-2) > 297.0 H 272.9 H Troponin I > 81.00 H* > 81.00 H* Total Protein Albumin Globulin Albumin/Globulin Ratio 01/16/20 01/16/20 04:35 04:35 WBC 10.7 RBC 4.49 Hgb 14.3 Hct 42 MCV 93 MCH 32 H MCHC 34 RDW 13 Plt Count 112 L MPV 10.3 Neut % (Auto) 81.8 Lymph % (Auto) 8.2 [place] % (Auto) 7.9 Eos % (Auto) 1.5 Baso % (Auto) 0.6 Absolute Neuts (auto) 8.8 H Absolute Lymphs (auto) 0.9 L Absolute Monos (auto) 0.8 Absolute Eos (auto) 0.2 Absolute Basos (auto) 0.1 Absolute Nucleated RBC 0.0 Nucleated RBC % 0.0 APTT Sodium 133 L Potassium 4.2 Chloride 104 Carbon Dioxide 21 L Anion Gap 8 BUN 23 Creatinine 1.33 H Est GFR ( Amer) 63.3 Est GFR (Non-Af Amer) 52.3 BUN/Creatinine Ratio 17.3 Glucose 108 H Calcium 8.1 L Magnesium 1.8 L Total Bilirubin 0.90 Direct Bilirubin 0.10 Indirect Bilirubin 0.8 AST 221 H ALT 64 H Alkaline Phosphatase 53 Total Creatine Kinase 1129 H CK-MB (CK-2) 66.4 H Troponin I 78.63 H* Total Protein 6.0 L Albumin 3.5 Globulin 2.5 Albumin/Globulin Ratio 1.4 Diagnostic Imaging: Cardiac Catheterization Report LAWANDA ANDRADE [id number] 01/15/20 DESCRIPTION OF PROCEDURE: The patient was brought to the cardiovascular lab where a formal time-out was performed. He was prepped and draped in sterile fashion and under ultrasound guidance the right radial artery was cannulated and the sheath was placed. Coronary arteriography was performed. The decision was then made to intervene into the totally occluded proximal to mid left anterior descending artery. A guide catheter views were obtained and the guidewire was negotiated down the left anterior descending artery initially into a diagonal branch and then repositioned into the left anterior descending artery. Balloon angioplasty was performed followed by stent delivery. Post stent delivery balloon inflations were made to high pressures utilizing the NC Emerge balloon. Following this, the artery was assessed both with the wire in place and wire removed. Further injections were made throughout the case to assess the circumflex artery to obtain more views. Following this, left heart catheterization was performed and left ventriculography was performed utilizing a total of 24 cc of Visipaque dye at a rate of 12 cc/second. The cath was then pulled back across the aortic valve to recheck gradient. At the end of the case, the catheter and sheath were removed and hemostasis was obtained with a Vasc Band. The reverse Barbeau was a B. The total contrast used was 200 cc of Omnipaque dye and 24 cc of Visipaque dye. The radiation exposure included 12.2 minutes of fluoro time. The air kerma radiation was 3571 milligray. The DAP radiation was 20,286 microgray per meter square. RESULTS: HEMODYNAMIC DATA: Left heart catheterization revealed central aortic pressure recorded at 98/61 with a mean of 79, left ventricular pressure was 100/left ventricular end diastolic pressure of 29. LEFT VENTRICULOGRAPHY: Performed in the GONZALES projection was a somewhat suboptimal injection, however, there was severe hypo to akinesis of the mid anterior, anterior apical and distal inferior wall with preservation of the proximal inferior and the proximal anterior wall. The overall ejection fraction appeared to be in the range of 25% to 30%. Of note, this was difficult to assess due to the somewhat suboptimal injection. CORONARY ARTERIOGRAPHY: A. Right coronary artery - a nondominant vessel supplying 2 acute marginal branches of the right coronary artery, no significant obstruction was noted. B. Left coronary artery: 1. Left main - widely patent. 2. Left anterior descending artery totally occluded. After a high septal ironworker foreman and a high first diagonal branch. On reconstitution of the vessel, the [id number] vessel had mild luminal irregularities, but no critical obstruction noted. The LAD supplied multiple diagonal branches somewhat smaller in caliber and wrapped around the apical region onto the distal inferior wall. 3. Circumflex - a dominant vessel supplying a very thin trifurcation marginal branch followed by multiple obtuse marginal branches and eventually a left-sided posterior descending artery. There were mild luminal irregularities, but no significant obstruction seen throughout the circumflex artery. INTERVENTION INTO MID LEFT ANTERIOR DESCENDING ARTERY: - Successful reconstitution of the totally occluded beginning of the mid portion of the LAD with balloon angioplasty and stent placement utilizing a 3.5 x 28 mm Synergy drug-eluting stent post dilated to 3.65 to 3.7 with LACI 3 flow with no dissection seen and 0% residual stenosis. Of note, there was a very small diagonal branch that had LACI 2 flow in it, however, there was brisk LACI 3 flow throughout the rest of the left anterior descending artery. OVERALL ASSESSMENT: This report is only to be considered final once signed by the Provider(s) as displayed in the "<Electronically Signed by >" field (s). Absence of a signature indicates the report is in a draft status and still needs to be finalized. In the event this document was created by someone other than the signing Provider, the individual initiating the document will be listed in the "Entered by:" or "Dictated by:" arellano. 2 of 3 *[facility]* [place] [address] Fax #: [phone] Transthoracic Echocardiogram Patient: Lawanda Andrade : 1945 Study Date: 01/15/2020 Age: 74 Gender: M HR: 55 bpm Height: 70 in /177.8 cm BSA: 2.16 m^2 Weight: 215.6 lb /98 kg BMI: 31 kg/m^2 *Pmo Lead: * Dunia Sparrow RD *Referring Physician: * Flako Moreau MD *Reading Physician: * Ricky Hough MD Indications: Myocardial Infarction (new). History: Prostate Cancer. Labs, prior tests, procedures, and surgery: Catheterization with coronary intervention. Performed during the current admission. 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 Conclusions Summary: - Left ventricle: Systolic function is moderately reduced. The estimated ejection fraction is 30-35%. - Regional wall motion abnormality: Dyskinesis of the apical myocardium; akinesis of the apical anterior myocardium; severe hypokinesis of the mid anterior, mid anteroseptal, and apical lateral myocardium; mild hypokinesis of the apical septal myocardium. - Right ventricle: Systolic function is low normal. Systolic pressure is within the normal range. - Mitral valve: There is trace to mild regurgitation. - Aortic valve: There is no evidence of stenosis. There is trace regurgitation. This report is only to be considered final once signed by the Provider(s) as displayed in the "<Electronically Signed by >" field (s). Absence of a signature indicates the report is in a draft status and still needs to be finalized. In the event this document was created by someone other than the signing Provider, the individual initiating the document will be listed in the "Entered by:" or "Dictated by:" arellano. EKG Data: ECG 01/15/2020; [facility] rhythm rate 68 with known anterolateral ongoing ST elevation in anterolateral leads. Telemetry; reviewed sinus rhythm rate 60-70's with periods of intraventricular delay, no VT Assessment/Plan #1 Late presenting anterior STEMI; s/p successful PTCA/KACI to mid LAD, LVEF 30- 35% on TTE 01/15/2020. Troponin > 83. No recurrent c/o chest pain since intervention. Now on Brilinta 90 BID, ASA 81/day, Lipitor 80QHS. Lopressor and Captopril has been held due to hypotension although patient is not symptomatic. Right radial access site intact, no hematoma. Will likely go to 4S later today #2 ICM; LVEF 30-35% on 01/15/2020 echo; appears compensated. Has not received ACEI or bblocker due to hypotension. However, now that he is up and ambulating I am hoping BP improves. Would optimize ACEI first. #3 Transaminitis; Likely due to above #1. Will follow closely. #4 Renal Insufficiency, creatinine today 1.3, in the past would have times when creatinine was 1.2, encouraged adequate hydration. Will follow. #5 elevated glucose on chemistry panel. will update HgbA1C. #6 Disposition; Will likely transfer to 4 S later today. Ideally I would like him to receive Captopril if BP allows. I am hoping now that he is up and ambulating his blood pressure improves. Attending: Roberto Dover
[2020-01-16] MEDS ORDERED: Magnesium Sulfate 1 GM IV* 1 GM/100 ML BAG IV ONE (10:38)
[2020-01-16] MEDS ORDERED: Magnesium Sulfate 2 GM IV* 2 GM/50 ML BAG IVPB ONE (10:40)
[2020-01-16] MEDS: Enoxaparin(*) 40 MG/0.4 ML SYR SUBCUT SCH (17:12)
[2020-01-16] MEDS: Atorvastatin* 80 MG TAB PO SCH (17:15)
[2020-01-16] MEDS: Melatonin 3 MG TAB PO SCH (20:53)
[2020-01-17] MEDS ORDERED: Furosemide TAB* 20 MG PO ONE (08:50)
--- NOTE | 2020-01-17 09:02 | PN ---
Subjective Date of Service: 01/17/20 - late presenting anterior CO, ICM Interval History: No events last night, patient states he had a hard time sleeping last night. Offers no complaints, his is at his bedside. Denies dizziness, lightheadedness, chest pain. Patient's state with exertion she has noticed he is more sob. Medications Active Medications: Acetaminophen (Tylenol Tab*) 650 mg PO Q4H PRN PRN Reason: PAIN - MILD Aspirin (Aspirin 81 Mg Chew Tab*) 81 mg PO DAILY [facility] Last Admin: 01/16/20 09:01 Dose: 81 mg Atorvastatin Calcium (Lipitor*) 80 mg PO 1700 [facility] Last Admin: 01/16/20 17:15 Dose: 80 mg Captopril (Capoten Tab*) 3.125 mg PO TID [facility] Last Admin: 01/16/20 20:54 Dose: Not Given Docusate Sodium (Colace Cap*) 100 mg PO DAILY PRN PRN Reason: CONSTIPATION Enoxaparin Sodium (Lovenox(*)) 40 mg SUBCUT Q24H [facility] Last Admin: 01/16/20 17:12 Dose: 40 mg Melatonin (Melatonin) 3 mg PO BEDTIME [facility] Last Admin: 01/16/20 20:53 Dose: 3 mg Nitroglycerin (Nitroglycerin Tab 0.4 Mg*) 0.4 mg SL Q5M PRN PRN Reason: ANGINA Ondansetron HCl (Zofran Inj*) 4 mg IV Q4H PRN PRN Reason: NAUSEA Ticagrelor (Brilinta*) 90 mg PO BID [facility] Last Admin: 01/16/20 20:53 Dose: 90 mg Zolpidem Tartrate (Ambien Tab*) 5 mg PO BEDTIME PRN PRN Reason: INSOMNIA Objective Vital Signs: Temp Pulse Resp BP Pulse Ox 99.3 F 66 20 102/61 90 01/17/20 07:27 01/17/20 07:27 01/17/20 07:27 01/17/20 07:27 01/17/20 07:27 Oxygen Devices in Use Now: None Appearance: sitting on edge of bed, NAD, A+Ox3 Eyes: PERRLA Ears/Nose/Mouth/Throat: NL Teeth, Lips, Gums, Clear Oropharnyx Neck: NL Appearance and Movements; NL JVP, Trachea Midline Respiratory: Symmetrical Chest Expansion and Respiratory Effort, - - + inspiratory rales noted in bases. Cardiovascular: NL Sounds; No Murmurs; No JVD, RRR, No Edema Abdominal: NL Sounds; No Tenderness; No Distention Extremities: No Edema, - - right radial access site intact, 3+ radial pulse, no hematoma, non tender to palpation. Skin: No Rash or Ulcers Neurological: Alert and Oriented x 3 Lines/Tubes/Other Access: Clean, Dry and Intact Peripheral IV Laboratory Results: 01/16/20 04:35 01/16/20 04:35 INR (Anticoag Therapy) 1.07 (0.82-1.09) 01/14/20 22:47 APTT 28.5 seconds (26.0-38.0) 01/16/20 04:35 Total Bilirubin 0.90 mg/dL (0.2-1.0) 01/16/20 04:35 Direct Bilirubin 0.10 mg/dL (0.03-0.18) 01/16/20 04:35 Indirect Bilirubin 0.8 mg/dL (0.3-1.0) 01/16/20 04:35 AST 221 U/L (13-39) H 01/16/20 04:35 ALT 64 U/L (7-52) H 01/16/20 04:35 Alkaline Phosphatase 53 U/L (34-104) 01/16/20 04:35 CK-MB (CK-2) 66.4 ng/mL (0.6-6.3) H 01/16/20 04:35 B-Natriuretic Peptide 214 pg/mL (<=100) H 01/14/20 22:47 Total Protein 6.0 g/dL (6.4-8.9) L 01/16/20 04:35 Albumin 3.5 g/dL (3.2-5.2) 01/16/20 04:35 Globulin 2.5 g/dL (2-4) 01/16/20 04:35 Albumin/Globulin Ratio 1.4 (1-3) 01/16/20 04:35 Triglycerides 64 mg/dL 01/15/20 04:26 Cholesterol 165 mg/dL 01/15/20 04:26 LDL Cholesterol 101 mg/dL 01/15/20 04:26 HDL Cholesterol 51.0 mg/dL 01/15/20 04:26 01/14/20 01/15/20 01/15/20 22:47 01:09 05:53 Troponin I 0.55 H* > 81.00 H* > 81.00 H* 01/15/20 01/15/20 01/16/20 13:16 17:23 04:35 Troponin I > 81.00 H* > 81.00 H* 78.63 H* Laboratory Results - last 24 hr 01/17/20 04:29 Prostate Specific Ag < 0.008 Diagnostic Imaging: Cardiac Catheterization Report LAWANDA ANDRADE [id number] 01/15/20 DESCRIPTION OF PROCEDURE: The patient was brought to the cardiovascular lab where a formal time-out was performed. He was prepped and draped in sterile fashion and under ultrasound guidance the right radial artery was cannulated and the sheath was placed. Coronary arteriography was performed. The decision was then made to intervene into the totally occluded proximal to mid left anterior descending artery. A guide catheter views were obtained and the guidewire was negotiated down the left anterior descending artery initially into a diagonal branch and then repositioned into the left anterior descending artery. Balloon angioplasty was performed followed by stent delivery. Post stent delivery balloon inflations were made to high pressures utilizing the NC Emerge balloon. Following this, the artery was assessed both with the wire in place and wire removed. Further injections were made throughout the case to assess the circumflex artery to obtain more views. Following this, left heart catheterization was performed and left ventriculography was performed utilizing a total of 24 cc of Visipaque dye at a rate of 12 cc/second. The cath was then pulled back across the aortic valve to recheck gradient. At the end of the case, the catheter and sheath were removed and hemostasis was obtained with a Vasc Band. The reverse Barbeau was a B. The total contrast used was 200 cc of Omnipaque dye and 24 cc of Visipaque dye. The radiation exposure included 12.2 minutes of fluoro time. The air kerma radiation was 3571 milligray. The DAP radiation was 20,286 microgray per meter square. RESULTS: HEMODYNAMIC DATA: Left heart catheterization revealed central aortic pressure recorded at 98/61 with a mean of 79, left ventricular pressure was 100/left ventricular end diastolic pressure of 29. LEFT VENTRICULOGRAPHY: Performed in the GONZALES projection was a somewhat suboptimal injection, however, there was severe hypo to akinesis of the mid anterior, anterior apical and distal inferior wall with preservation of the proximal inferior and the proximal anterior wall. The overall ejection fraction appeared to be in the range of 25% to 30%. Of note, this was difficult to assess due to the somewhat suboptimal injection. CORONARY ARTERIOGRAPHY: A. Right coronary artery - a nondominant vessel supplying 2 acute marginal branches of the right coronary artery, no significant obstruction was noted. B. Left coronary artery: 1. Left main - widely patent. 2. Left anterior descending artery totally occluded. After a high septal hat forming machine feeder and a high first diagonal branch. On reconstitution of the vessel, the [id number] vessel had mild luminal irregularities, but no critical obstruction noted. The LAD supplied multiple diagonal branches somewhat smaller in caliber and wrapped around the apical region onto the distal inferior wall. 3. Circumflex - a dominant vessel supplying a very thin trifurcation marginal branch followed by multiple obtuse marginal branches and eventually a left-sided posterior descending artery. There were mild luminal irregularities, but no significant obstruction seen throughout the circumflex artery. INTERVENTION INTO MID LEFT ANTERIOR DESCENDING ARTERY: - Successful reconstitution of the totally occluded beginning of the mid portion of the LAD with balloon angioplasty and stent placement utilizing a 3.5 x 28 mm Synergy drug-eluting stent post dilated to 3.65 to 3.7 with LACI 3 flow with no dissection seen and 0% residual stenosis. Of note, there was a very small diagonal branch that had LACI 2 flow in it, however, there was brisk LACI 3 flow throughout the rest of the left anterior descending artery. OVERALL ASSESSMENT: This report is only to be considered final once signed by the Provider(s) as displayed in the "<Electronically Signed by >" field (s). Absence of a signature indicates the report is in a draft status and still needs to be finalized. In the event this document was created by someone other than the signing Provider, the individual initiating the document will be listed in the "Entered by:" or "Dictated by:" arellano. 2 of 3 *[facility]* [place] [address] Fax #: [phone] Transthoracic Echocardiogram Patient: Lawanda Andrade : 1945 Study Date: 01/15/2020 Age: 74 Gender: M HR: 55 bpm Height: 70 in /177.8 cm BSA: 2.16 m^2 Weight: 215.6 lb /98 kg BMI: 31 kg/m^2 *Warehouse Team Leader: * Dunia Sparrow RD *Referring Physician: * Flako Moreau MD *Reading Physician: * Ricky Hough MD Indications: Myocardial Infarction (new). History: Prostate Cancer. Labs, prior tests, procedures, and surgery: Catheterization with coronary intervention. Performed during the current admission. 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 Conclusions Summary: - Left ventricle: Systolic function is moderately reduced. The estimated ejection fraction is 30-35%. - Regional wall motion abnormality: Dyskinesis of the apical myocardium; akinesis of the apical anterior myocardium; severe hypokinesis of the mid anterior, mid anteroseptal, and apical lateral myocardium; mild hypokinesis of the apical septal myocardium. - Right ventricle: Systolic function is low normal. Systolic pressure is within the normal range. - Mitral valve: There is trace to mild regurgitation. - Aortic valve: There is no evidence of stenosis. There is trace regurgitation. This report is only to be considered final once signed by the Provider(s) as displayed in the "<Electronically Signed by >" field (s). Absence of a signature indicates the report is in a draft status and still needs to be finalized. In the event this document was created by someone other than the signing Provider, the individual initiating the document will be listed in the "Entered by:" or "Dictated by:" arellano. EKG Data: ECG 01/15/2020; Sinus rhythm rate 68 with known anterolateral ongoing ST elevation in anterolateral leads. ECG 01/17/2020; Sinus rhythm rate [address] elevation . Telemetry; reviewed sinus rhythm rate 60-70's no VT Assessment/Plan #1 Late presenting anterior STEMI; s/p successful PTCA/KACI to mid LAD, LVEF 30- 35% on TTE 01/15/2020. Troponin peaked at > 83 and has started to rend down. No recurrent c/o chest pain since intervention. Now on Brilinta 90 BID, ASA 81/day , Lipitor 80QHS. Captopril has been held due to hypotension although patient is not symptomatic. Right radial access site intact, no hematoma. He has + inspiratory rales in bilateral bases, I have ordered 20mg PO lasix x1, if SBP> 100 will give Captopril after. #2 ICM; LVEF 30-35% on 01/15/2020 echo;+ exertional dyspnea and + rales noted in bases. Has not received ACEI or bblocker due to hypotension. Will give 20mg Po Lasix. Continue Captopril with parameters. Will place order for lifevest. #3 Transaminitis; Likely due to above #1. improved on yesterday's labs. #4 Renal Insufficiency, creatinine 1.3 01/16/2020. #5 elevated glucose on chemistry panel. will update HgbA1C(pending) #6 Disposition; patient full code. Will gently diurese. Will place order for lifevest and follow closely. Attending: Roberto Dover
[2020-01-17] MEDS: Aspirin 81 mg CHEW TAB* 81 MG TAB.CHEW PO SCH (09:08)
[2020-01-17] MEDS: Ticagrelor* 90 MG TAB PO SCH ×2 (09:10→22:08)
[2020-01-17 10:09] LABS: Anion Gap 7 mmol/L (2-11); BUN/Creatinine Ratio 20.7 (8-20); Blood Urea Nitrogen 25 mg/dL (6-24); CO2 Carbon Dioxide 22 mmol/L (22-32); Calcium 8.5 mg/dL (8.6-10.3); Chloride 104 mmol/L (101-111); EGFR African American 70.5 (>60); EGFR Non-African American 58.3 (>60); Glucose 102 mg/dL (70-100); Potassium 4.4 mmol/L (3.5-5.0); Sodium 133 mmol/L (135-145)
[2020-01-17] MEDS: CAPTopril TAB* 12.5 MG TAB PO SCH ×3 (10:32→22:08)
[2020-01-17] MEDS ORDERED: Perflutren Lipid Microsphere* 3 ML VIAL ONE (15:26)
[2020-01-17] MEDS: Atorvastatin* 80 MG TAB PO SCH (16:52)
[2020-01-17] MEDS: Enoxaparin(*) 40 MG/0.4 ML SYR SUBCUT SCH (18:07)
[2020-01-17] MEDS: Melatonin 3 MG TAB PO SCH (22:07)
[2020-01-17] MEDS: Metoprolol Tartrate TAB* 25 MG PO SCH (22:08)
[2020-01-18] MEDS ORDERED: Lisinopril TAB* 5 MG PO SCH (09:00)
[2020-01-18] MEDS: Aspirin 81 mg CHEW TAB* 81 MG TAB.CHEW PO SCH (09:29)
[2020-01-18] MEDS: Ticagrelor* 90 MG TAB PO SCH (09:30)
[2020-01-18] MEDS: Metoprolol Tartrate TAB* 25 MG PO SCH (09:30)
[2020-01-18 12:04] VITALS: BP 98/66
--- NOTE | 2020-01-18 13:16 | DS ---
CC: Dr. Almazan; Dr. Jasmin Caicedo * DISCHARGE SUMMARY: DATE OF ADMISSION: 01/14/20 DATE OF DISCHARGE: 01/18/20 ATTENDING PHYSICIAN: Dr. Roberto Dover, Cardiology.* (DICTATED BY LINN GORMAN NP) PRIMARY CARE PHYSICIAN: Dr. Almazan. ADMITTING DIAGNOSIS: Late presenting anterior ST-segment elevation myocardial infarction. DISCHARGE DIAGNOSES: 1. Status post late presenting ST-segment myocardial infarction resulting in successful drug-eluting stent in mid LAD with 3.5 x 28 mm Synergy drug-eluting stent, LVEF 30% to 35%; troponin peak greater than 81; now on aspirin, Brilinta , statin, and beta-blockade therapy. No complications during hospital stay. 2. Relative hypotension during hospital stay, to be discharged home on lisinopril 2.5 mg in combination with metoprolol 25 mg p.o. b.i.d. the patient is asymptomatic. The patient will need followup evaluation for potential Aldactone initiation, this can take place at his followup appointment. 3. Elevated hemoglobin A1c; 5.8% during hospital day. He was advised to follow up with PCP Dr. Almazan to discuss elevation in hemoglobin A1c. 4. Renal insufficiency. Creatinine 01/17/20, 1.21. We will repeat basic metabolic panel in 7 to 10 days' time. 5. Ischemic cardiomyopathy. LVEF 30% to 35%. To be discharged home with LifeVest. The patient is on Lopressor 25 mg p.o. b.i.d. in combination with lisinopril 2.5 mg a day. In followup, we can consider transitioning Lopressor to metoprolol and adding Aldactone; however much of this depends on the patient' s blood pressure response. It has been difficult to aggressively medically manage ischemic cardiomyopathy due to relative hypotension, although the patient is not symptomatic and blood pressure has been slowly improving with the patient's activity. He is compensated upon physical examination. PROCEDURES PERFORMED: The patient had an urgent cardiac catheterization on by Dr. Flako Moreau due to a late presenting ST-segment elevation anterior wall myocardial infarction. Right radial artery sheath was used involving a 6-Hungarian sheath catheter. 1. Left main; widely patent. 2. LAD, totally occluded after high septal corporate responsibility officer and high first diagonal branch. On reconstitution of the vessel, the mid to distal vessel has luminal irregularities but no critical obstruction noted. The LAD supplied multiple diagonal branches somewhat smaller in caliber and wrapped around the apical region onto the distal inferior wall. 3. Left circumflex, codominant vessel supplying a thin trifurcation marginal branch followed by multiple obtuse marginal branches and eventually a left- sided PDA. There are multiple luminal irregularities but no significant obstruction seen. 4. Right coronary artery; nondominant vessel supplying 2 acute marginal branches of the RCA. No significant obstruction noted. 5. LV gram: EF 25% to 30%. However, it was a difficult to assess due to somewhat suboptimal injection. INTERVENTIONS PERFORMED: The patient underwent successful 3.5 x 28 mm Synergy drug- eluting stent placement to mid LAD with no residual stenosis, LACI-3 flow post stent deployment with no dissection noted. COMPLICATIONS: None thus far. 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 The patient developed a 30- to 40- minute episode of chest discomfort around 6:30 p.m. on the evening of 01/13/20 that did eventually resolve. Prior to that, he had exertional chest pain during the daytime hours that resolved with rest. At 7:15 p.m. while lying down at home on 01/13/20, he developed recurrent chest pain that was progressive and ongoing. Thus, after 2 hours of ongoing chest pain, he presented to [facility]. EKG revealed ST-segment elevation involving the anterior territory. As such a STEMI alert was called. The patient was given aspirin, Brilinta, and heparin therapy and taken urgently to the lab technologist where he underwent successful drug-eluting stent placement to mid LAD. LVEF 25% to 30% on LV gram. He was admitted to the ICU. Troponin peaked greater than 81. He was maintained on aspirin and Brilinta therapy. Echocardiogram was updated on 01/15/20. Per report, LVEF was 30% to 35% with dyskinesis of the apical myocardium; akinesis of the apical anterior myocardium ; severe hypokinesis of the mid anterior, mid anteroseptal, and apical lateral myocardium; and mild hypokinesis of the apical septal myocardium. Trace mitral insufficiency, trace aortic insufficiency, [id number] tricuspid insufficiency. No pericardial effusion noted. The patient did not have any recurrent complaints of chest pain since PCI. He has been stable and up and ambulating halls with no difficulty. Of note, he had notable hypotension, systolic blood pressure within the 80s, thus captopril and metoprolol were temporarily held but were resumed on 01/17/20. Again, the patient has been asymptomatic. Most recent set of vital signs, blood pressure was 100/76. Last set of blood work was on 01/17/20, sodium was 133, potassium 4.4, creatinine 1.21, glucose 102, hemoglobin A1c was 5.8%, magnesium 2. Troponin started to trend down on 01/16/20. LDL during this admission was 101. He was started on high intensity statin therapy. The patient did have notable transaminitis; however, AST and ALT were trending down on 01/16/20. At the patient's request, he had a prostate specific antigen obtained, which will need to be sent to Dr. Cintron. The patient had a repeat limited echo 01/17/20. At that time, LVEF was still 30% to 35%, thus [facility] The patient is stable , asymptomatic. He has been ambulating halls and is not symptomatic in regards to his relative hypotension. He is to be discharged home later today. ECG continues to reveal persistent anterolateral ST segment elevation. This is likely due to aneurysmal formation given late presenting anterior STEMI. Blood work to be obtained due to underlying renal insufficiency. He is to have a followup basic metabolic panel next week prior to appointment with Dr. Flako Moreau. A script has been sent through our outpatient electronic health care record in [facility], the patient is aware. ACTIVITY RESTRICTION: The patient was advised to not drive until he follows up next weak. He was advised to not lift more than 5 to 10 pounds until further directed. He was advised to not soak right radial access site, he is able to shower though. DISCHARGE MEDICATIONS: 1. Aspirin 81 mg a day. 2. Lipitor 80 mg p.o. q.h.s. 3. Lopressor 25 mg p.o. b.i.d. 4. Brilinta 90 mg p.o. b.i.d. 5. Lisinopril 2.5 mg a day. 6. Nitroglycerin 0.4 mg sublingual tablets as needed p.r.n. up to 3 doses. 7. Tylenol for pain. FOLLOWUP APPOINTMENTS: The patient is to follow up with: 1. Dr. Almazan in 7 to 10 days to discuss abnormal hemoglobin A1C. 2. Dr. Flako Moreau on 01/23/20 at 2:[address] Jasmin Caicedo on 02/12/20 at 11:[address] Roberto Dover has personally seen and examined the patient and agrees with the above assessment and plan. We will await the patient to be fitted for LifeVest and discharged home later today in stable condition. Please note right radial access site is intact, 3+ radial pulse, no hematoma, nontender to palpation. LINN GORMAN NP [id number]/[facility] #: [id number] B[facility] DAVID HOSPITALIzbael
== END 2020-01-18 15:00 | disposition home or self-care (01) | DRG 247 ==
LOC: ED 22:35 → CHICATH 23:16 → ICU 01-15 00:32 → MEDTELE 01-16 10:41
PROVIDERS: ADMIT Internal Medicine Cardiovascular Disease; ATTEND Internal Medicine Cardiovascular Disease
PROC: 027034Z Dilation of Coronary Artery, One Artery with Drug-eluting Intraluminal Device, Percutaneous Approach (ICD-10-PCS; principal; 2020-01-14)
PROC: 4A023N7 Measurement of Cardiac Sampling and Pressure, Left Heart, Percutaneous Approach (ICD-10-PCS; 2020-01-14)
PROC: B2111ZZ Fluoroscopy of Multiple Coronary Arteries using Low Osmolar Contrast (ICD-10-PCS; 2020-01-14)
PROC: B2151ZZ Fluoroscopy of Left Heart using Low Osmolar Contrast (ICD-10-PCS; 2020-01-14)
DX: I21.09 ST elevation (STEMI) myocardial infarction involving other coronary artery of anterior wall (principal); I25.119 Atherosclerotic heart disease of native coronary artery with unspecified angina pectoris; I25.5 Ischemic cardiomyopathy; I95.9 Hypotension, unspecified; R74.0 Nonspecific elevation of levels of transaminase and lactic acid dehydrogenase [LDH]; I08.3 Combined rheumatic disorders of mitral, aortic and tricuspid valves; R73.09 Other abnormal glucose; N28.9 Disorder of kidney and ureter, unspecified; Z79.82 Long term (current) use of aspirin; Z85.46 Personal history of malignant neoplasm of prostate; Z90.79 Acquired absence of other genital organ(s); Z92.3 Personal history of irradiation; Z79.02 Long term (current) use of antithrombotics/antiplatelets
CPT/HCPCS: 36415; 71045; 80048; 80053; 80061; 80076; 82550; 82553; 83036; 83605; 83721; 83735; 83880; 84153; 84484; 85025; 85610; 85730; 86850; 86900; 86901; 87641; 93005; 93306; 93308; 99285; A9270-GY; C1725; C1876; C1887; C8924; C8929; C9606-LD; J0583; J1644; J1650; J2250; J2270; J2405; J3010; J3475; Q9967

== ENCOUNTER 2020-01-23 21:07 | Emergency (ER) | payer MEDICARE, BC ==
--- OUTSIDE RECORDS SUMMARY | 2020-01-23 21:33 | XMS REPORT | Continuity of Care Document ---
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 Aspirin Adult Low 1 by mouth Unknown Strength every day 81mg Chewtabs Multivitamins 1 by mouth Unknown Capsules every day Selenium one tab daily Unknown 50mcg Tablets Immunizations Description No Information Available Vital Signs Date Vital Result Comment 07/23/2016 8:32am Height 73 inches 6'1" Weight 211.00 lb with shoes Heart Rate 66 /min BP Systolic Sitting 116 mmHg left arm, reg cuff BP Diastolic Sitting 82 mmHg left arm, reg cuff BP Systolic Standing 120 mmHg left arm, reg cuff BP Diastolic Standing 84 mmHg left arm, reg cuff Respiratory Rate 20 /min BMI (Body Mass Index) 27.8 kg/m2 Ejection Fraction 55-60% 04/19/16 05/27/2016 1:25pm Height 73 inches 6'1" Weight 215.00 lb w/o shoes Heart Rate 66 /min irreg BP Systolic 146 mmHg Lue, reg cuff BP Diastolic 94 mmHg Lue, reg cuff BP Systolic Sitting 144 mmHg Rue, reg cuff BP Diastolic Sitting 96 mmHg Rue, reg cuff BP Systolic Standing 140 mmHg Rue BP Diastolic Standing 100 mmHg Rue Respiratory Rate 18 /min BMI (Body Mass Index) 28.4 kg/m2 Ejection Fraction 55-60% As of 04/19/16 echo Results Test Acquired Date Facility Test Result H/L Range Note Basic Metabolic 01/21/2020 [facility] Sodium 137 mmol/L Normal 135-[address] [place] [address] [phone] Potassium 4.7 mmol/L Normal 3.5-5.0 Chloride 101 mmol/L Normal 101-111 Co2 Carbon Dioxide 28 mmol/L Normal 22-32 Anion Gap 8 mmol/L Normal 2-11 Glucose 100 mg/dL Normal 70-100 Blood Urea Nitrogen 25 mg/dL High 6-24 Creatinine 1.45 mg/dL High 0.67-1.17 BUN/Creatinine Ratio 17.2 Normal 8-20 Calcium 9.5 mg/dL Normal 8.6-10.3 Egfr Non- 47.3 >60 Egfr 57.3 >60 1 1 Because ethnic data is not always readily available, this report includes an eGFR for both -Americans and non- Americans. The National Kidney Disease Education Program (NKDEP) does not endorse the use of the MDRD equation for patients that are not between the ages of 18 and 70, are , have extremes of body size, muscle mass, or nutritional status, or are non- or non-. According to the National Kidney Foundation, irrespective of diagnosis, the stage of the disease is based on the level of kidney function: Stage Description GFR(mL/min/1.73 m(2)) 1 Kidney damage with normal or decreased GFR 90 2 Kidney damage with mild decrease in GFR 60-89 3 Moderate decrease in GFR 30-59 4 Severe decrease in GFR 15-29 5 Kidney failure <15 (or dialysis) Procedures Description No Information Available Medical Devices Description No Information Available Encounters Description No Information Available Assessments Description No Information Available Plan of Treatment Future Appointment(s):02/12/2020 11:30 am - Jasmin Caicedo M.D. at [facility]07/23/2016 - Jasmin Caicedo M.D.R42 Dizziness and giddinessComments:Your heart wall is mildly thickened and the septum bulges a bit, a normal anatomical variant.Possibility of exercise induced obstruction as discussed if you are dehydrated and your heart rate increasestoo quickly.Follow up:PRNRecommendations:Stay hydrated. Take the time to warm up and cool down. Future option if recurrent symptoms: low dose beta lauryn (metoprolol) to lower your heart rate.G90.4 Autonomic dysreflexia Functional Status Description No Information Available Mental Status Description No Information Available Referrals Description No Information Available
[2020-01-23 23:15] LABS: ABS Basophils 0.1 10^3/ul (0-0.2); ABS Eosinophils 0.6 10^3/ul (0-0.6); ABS Lymphocytes 1.5 10^3/ul (1.0-4.8); ABS Monocytes 1.2 10^3/ul (0-0.8); Eosinophil % 6.6 %; Hematocrit 43 % (42-52); Hemoglobin 14.9 g/dL (14.0-18.0); Lymphocyte % 17.7 %; Mean Corpuscular HGB Conc 35 g/dL (31-36); Mean Corpuscular Hemoglobin 32 pg (27-31); Mean Corpuscular Volume 91 fL (80-94); Mean Platelet Volume 11.1 fL (7.4-10.4); Platelet Count 172 10^3/uL (150-450); Red Blood Count 4.71 10^6 /uL (4.18-5.48); Red Cell Distribution Width 13 % (10-15); White Blood Count 8.3 10^3/uL (3.5-10.8)
[2020-01-23 23:28] LABS: INR 1.28 (0.82-1.09)
[2020-01-23 23:31] LABS: Albumin 4.1 g/dL (3.2-5.2); Albumin/Globulin Ratio 1.3 (1-3); BUN/Creatinine Ratio 20.5 (8-20); Calcium 9.4 mg/dL (8.6-10.3); EGFR African American 56.8 (>60); EGFR Non-African American 46.9 (>60); Globulin 3.1 g/dL (2-4); Potassium 4.8 mmol/L (3.5-5.0); Total Bilirubin 0.6 mg/dL (0.2-1.0); Total Protein 7.2 g/dL (6.4-8.9)
[2020-01-23 23:43] LABS: Urine Appearance Turbid; Urine Bacteria Absent (Absent); Urine Bilirubin Negative (Negative); Urine Blood 2+ (Negative); Urine Glucose Negative (Negative); Urine Ketones Negative (Negative); Urine Nitrite Negative (Negative); Urine Protein 2+(100 mg/dL) (Negative); Urine Red Blood Cell 3+(>10/hpf) (Absent); Urine Specific Gravity 1.018 (1.010-1.030); Urine Urobilinogen Negative (Negative); Urine White Blood Cell Absent (Absent)
[2020-01-23 23:45] LABS: Urine Color Red
[2020-01-24] MEDS ORDERED: Iodixanol* (CONTRAST) 320 MG/ML 100 ML SDV IV ONE (01:44)
--- NOTE | 2020-01-24 02:31 | ED ---
GI/ HPI - HPI Summary HPI Summary: Patient is a 74 y/o M presenting to [facility] with complaints of hematuria. The patient had a myocardial infarction one week ago with cardiac stent placement at [facility]. He was started on Brillinta and ASA. The patient states that around 1330 01/23/20, he had an episode of light hematuria. Subsequent urination at 1700 was clear, but at 2145, he had a urination with a significant amount of blood. Two notable subsequent episodes of hematuria are noted as well. Dysuria, abdominal pain are denied. PMHx of CHF noted. Home medications and allergies are reviewed. - History of Current Complaint Chief Complaint: EDUrogenitalProblems Time Seen by Provider: 01/24/20 00:00 Stated Complaint: BLOOD IN URINE PER PT Hx Obtained From: Patient Onset/Duration: Started Hours Ago Timing: Intermittent Current Severity: None Pain Intensity: 0 Associated Signs and Symptoms: Positive: Hematuria. Negative: Dysuria, Abdominal Pain - Additional Pertinent History Primary Care Physician: AIDEN - Allergy/Home Medications Allergies/Adverse Reactions: Allergies Allergy/AdvReac Type Severity Reaction Status Date / Time No Known Allergies Allergy Verified 04/18/16 17:10 Home Medications: Home Medications Multivitamin [Multivitamins] 1 cap PO DAILY 04/18/16 [History Confirmed 01/24/20 ] Aspirin 81 mg PO DAILY 90 Days #90 tab.chew 01/18/20 [Rx Confirmed 01/24/20] Aspirin 81 mg CHEW TAB* 81 mg PO DAILY 90 Days #90 tab.chew 01/18/20 [Rx Confirmed 01/24/20] Atorvastatin* [Lipitor 80 MG*] 80 mg PO 2200 90 Days #90 tab 01/18/20 [Rx Confirmed 01/24/20] Atorvastatin* [Lipitor 80 MG*] 80 mg PO 2200 90 Days #90 tab 01/18/20 [Rx Confirmed 01/24/20] Lisinopril TAB* [Prinivil TAB 5 MG*] 2.5 mg PO DAILY 90 Days #90 tab 01/18/20 [ Rx Confirmed 01/24/20] Metoprolol Tartrate TAB* [Lopressor TAB*] 25 mg PO BID 90 Days #180 tab [Rx Confirmed 01/24/20] Nitroglycerin TAB 0.4 MG* 0.4 mg SL Q5M PRN 14 Days #30 tab 01/18/20 [Rx Confirmed 01/24/20] Ticagrelor* [Brilinta*] 90 mg PO BID 30 Days #60 tab 01/18/20 [Rx Confirmed ] lisinopriL [Lisinopril 2.5 MG-] 2.5 mg PO DAILY 90 Days #90 tab 01/18/20 [Rx Confirmed 01/24/20] PMH/Surg Hx/FS Hx/Imm Hx Endocrine/Hematology History: Denies: Hx Diabetes Cardiovascular History: Reports: Hx Angina, Hx Congestive Heart Failure, Hx Myocardial Infarction, Other Cardiovascular Problems/Disorders - caridomyopathy Denies: Hx Coronary Artery Disease, Hx Hypercholesterolemia, Hx Hypertension , Hx Pacemaker/ICD, Hx Valvular Heart Disease Respiratory History: Denies: Hx Asthma, Hx Chronic Obstructive Pulmonary Disease (COPD) Musculoskeletal History: Reports: Hx Arthritis - left shoulder, Hx Back Problems Sensory History: Reports: Hx Contacts or Glasses Denies: Hx Hearing Aid Opthamlomology History: Reports: Hx Contacts or Glasses Neurological History: Reports: Other Neuro Impairments/Disorders - dizziness Psychiatric History: Denies: Hx Panic Disorder - Cancer History Cancer Type, 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 TONSILS - Immunization History Immunizations Up to Date: Yes Infectious Disease History: No Infectious Disease History: Denies: Hx of Known/Suspected MRSA, Traveled Outside the [place] in Last 30 Days - Family History Known Family History: Negative: Cardiac Disease - Social History Alcohol Use: Occasionally Hx Substance Use: No Substance Use Type: Reports: None Hx Tobacco Use: No Smoking Status (MU): Never Smoked Tobacco - Additional Comments History Additional Comments: Hx of CHF and IL with cardiac stent placement Review of Systems - ROS Summary Review of Systems Summary: Home Medications Medication Instructions Recorded Confirmed Type Multivitamin [Multivitamins] 1 cap PO DAILY 04/18/16 01/14/20 History Aspirin 81 mg PO DAILY 90 Days #90 tab.chew 01/18/20 Rx Aspirin 81 mg CHEW TAB* 81 mg PO DAILY 90 Days #90 tab.chew 01/18/20 Rx Atorvastatin* [Lipitor 80 MG*] 80 mg PO 2200 90 Days #90 tab 01/18/20 Rx Atorvastatin* [Lipitor 80 MG*] 80 mg PO 2200 90 Days #90 tab 01/18/20 Rx Lisinopril TAB* [Prinivil TAB 5 2.5 mg PO DAILY 90 Days #90 tab 01/18/20 Rx MG*] Metoprolol Tartrate TAB* 25 mg PO BID 90 Days #180 tab 01/18/20 Rx [Lopressor TAB*] Nitroglycerin TAB 0.4 MG* 0.4 mg SL Q5M PRN 14 Days #30 tab 01/18/20 Rx Ticagrelor* [Brilinta*] 90 mg PO BID 30 Days #60 tab 01/18/20 Rx lisinopriL [Lisinopril 2.5 MG-] 2.5 mg PO DAILY 90 Days #90 tab 01/18/20 Rx Negative: Abdominal Pain Positive: hematuria. Negative: dysuria All Other Systems Reviewed And Are Negative: Yes Physical Exam - Summary Physical Exam Summary: General: Well-developed, Well-nourished, Elderly male. No acute distress. HEENT: Normocephalic, Atraumatic. Eyes: Conjuctiva normal, PERRL. Oropharynx: Clear, mucous membranes moist, (-) exudates. Neck: Soft, FROM, (-) lymphadenopathy, (-) thyromegaly, (-) JVD. Cardiovascular: Normal sinus rhythm, (-) murmur. Lungs: Clear to auscultation bilaterally (-) wheezes, (-) rales, (-) rhonchi. Abdomen: Soft, non-tender, non-distended, (-) organomegaly, normal bowel sounds. Back: (-) CVA tenderness Extremities: No edema. Skin: Warm, dry, (-) rash. Neuro: Alert and oriented x3, moves all extremities equally. No ataxia. No gait disturbance. No sensory deficit. Normal strength, normal sensation. Psychiatric: Mood normal, affect normal. Triage Information Reviewed: Yes Vital Signs On Initial Exam: Initial Vitals Temp Pulse Resp BP Pulse Ox 98.6 F 56 20 115/83 95 01/23/20 21:21 01/23/20 21:21 01/23/20 21:21 01/23/20 21:21 01/23/20 21:21 Vital Signs Reviewed: Yes Procedures - Sedation Patient Received Moderate/Deep Sedation with Procedure: No Diagnostics - Vital Signs Vital Signs Temp Pulse Resp BP Pulse Ox 01/24/20 02:18 58 89/56 91 01/24/20 02:17 57 87/51 91 01/24/20 02:04 58 18 118/64 96 01/24/20 00:08 56 18 120/65 96 01/23/20 21:21 98.6 F 56 20 115/83 95 - Laboratory Lab Results: Lab Results 01/23/20 01/23/20 01/23/20 Range/Units 23:06 23:06 23:06 WBC 8.3 (3.5-10.8) 10^3/uL RBC 4.71 (4.18-5.48) 10^6 /uL Hgb 14.9 (14.0-18.0) g/dL Hct 43 (42-52) % MCV 91 (80-94) fL MCH 32 H (27-31) pg MCHC 35 (31-36) g/dL RDW 13 (10-15) % Plt Count 172 (150-450) 10^3/uL MPV 11.1 H (7.4-10.4) fL Neut % (Auto) 60.3 % Lymph % (Auto) 17.7 % [place] % (Auto) 14.5 % Eos % (Auto) 6.6 % Baso % (Auto) 0.9 % Absolute Neuts (auto) 5.0 (1.5-7.7) 10^3/ul Absolute Lymphs (auto) 1.5 (1.0-4.8) 10^3/ul Absolute Monos (auto) 1.2 H (0-0.8) 10^3/ul Absolute Eos (auto) 0.6 (0-0.6) 10^3/ul Absolute Basos (auto) 0.1 (0-0.2) 10^3/ul Absolute Nucleated RBC 0.0 10^3/ul Nucleated RBC % 0.0 INR (Anticoag Therapy) 1.28 H (0.82-1.09) Sodium 135 (135-145) mmol/L Potassium 4.8 (3.5-5.0) mmol/L Chloride 102 (101-111) mmol/L Carbon Dioxide 25 (22-32) mmol/L Anion Gap 8 (2-11) mmol/L BUN 30 H (6-24) mg/dL Creatinine 1.46 H (0.67-1.17) mg/dL Est GFR ( Amer) 56.8 (>60) Est GFR (Non-Af Amer) 46.9 (>60) BUN/Creatinine Ratio 20.5 H (8-20) Glucose 92 (70-100) mg/dL Calcium 9.4 (8.6-10.3) mg/dL Total Bilirubin 0.60 (0.2-1.0) mg/dL AST 22 (13-39) U/L ALT 24 (7-52) U/L Alkaline Phosphatase 63 (34-104) U/L Total Protein 7.2 (6.4-8.9) g/dL Albumin 4.1 (3.2-5.2) g/dL Globulin 3.1 (2-4) g/dL Albumin/Globulin Ratio 1.3 (1-3) Urine Color Urine Appearance Urine pH (5-9) Ur Specific [place] (1.010-1.030) Urine Protein (Negative) Urine Ketones (Negative) Urine Blood (Negative) Urine Nitrate (Negative) Urine Bilirubin (Negative) Urine Urobilinogen (Negative) Ur Leukocyte Esterase (Negative) Urine WBC (Auto) (Absent) Urine RBC (Auto) (Absent) Urine Bacteria (Absent) Urine Glucose (Negative) Urine Ascorbic Acid (Negative) 01/23/20 Range/Units 23:10 WBC (3.5-10.8) 10^3/uL RBC (4.18-5.48) 10^6 /uL Hgb (14.0-18.0) g/dL Hct (42-52) % MCV (80-94) fL MCH (27-31) pg MCHC (31-36) g/dL RDW (10-15) % Plt Count (150-450) 10^3/uL MPV (7.4-10.4) fL Neut % (Auto) % Lymph % (Auto) % [place] % (Auto) % Eos % (Auto) % Baso % (Auto) % Absolute Neuts (auto) (1.5-7.7) 10^3/ul Absolute Lymphs (auto) (1.0-4.8) 10^3/ul Absolute Monos (auto) (0-0.8) 10^3/ul Absolute Eos (auto) (0-0.6) 10^3/ul Absolute Basos (auto) (0-0.2) 10^3/ul Absolute Nucleated RBC 10^3/ul Nucleated RBC % INR (Anticoag Therapy) (0.82-1.09) Sodium (135-145) mmol/L Potassium (3.5-5.0) mmol/L Chloride (101-111) mmol/L Carbon Dioxide (22-32) mmol/L Anion Gap (2-11) mmol/L BUN (6-24) mg/dL Creatinine (0.67-1.17) mg/dL Est GFR ( Amer) (>60) Est GFR (Non-Af Amer) (>60) BUN/Creatinine Ratio (8-20) Glucose (70-100) mg/dL Calcium (8.6-10.3) mg/dL Total Bilirubin (0.2-1.0) mg/dL AST (13-39) U/L ALT (7-52) U/L Alkaline Phosphatase (34-104) U/L Total Protein (6.4-8.9) g/dL Albumin (3.2-5.2) g/dL Globulin (2-4) g/dL Albumin/Globulin Ratio (1-3) Urine Color Red A Urine Appearance Turbid Urine pH 6.0 (5-9) Ur Specific [place] 1.018 (1.010-1.030) Urine Protein 2+(100 mg/dl) A (Negative) Urine Ketones Negative (Negative) Urine Blood 2+ A (Negative) Urine Nitrate Negative (Negative) Urine Bilirubin Negative (Negative) Urine Urobilinogen Negative (Negative) Ur Leukocyte Esterase Negative (Negative) Urine WBC (Auto) Absent (Absent) Urine RBC (Auto) 3+(>10/hpf) A (Absent) Urine Bacteria Absent (Absent) Urine Glucose Negative (Negative) Urine Ascorbic Acid * A (Negative) Result Diagrams: 01/23/20 23:06 01/23/20 23:06 Lab Statement: Any lab studies that have been ordered have been reviewed, and results considered in the medical decision making process. - CT CT ABD/PEL CT Interpretation Completed By: Radiologist Summary of CT Findings: 1. No CT findings to correlate with patient's symptomatology. Specifically no. renal, ureteral, or bladder abnormalities to account for patient's hematuria. 2. Simple hepatic cysts. No followup imaging indicated per ACR guidelines. 3. Right nephrolithiasis. 4. Simple hepatic cysts. No followup imaging indicated per ACR guidelines. THIS REPORT WAS REVIEWED BY ED PHYSICIAN. Re-Evaluation - Re-Evaluation First Eval Re-Evaluation Time: 02:54 Comment: Results of workup was discussed with patient, he will be discharged to home and follow up with his PCP and dye jig operator tomorrow, who will adjust medications as needed. GIGU Course/Dx - Course Course Of Treatment: 74 year old male presents wiht asymptomatic hematuria. Patient has CHF. he had IL and stent one week ago. He is on Brillinta, ASA, and lifevest. He has low BPs at baseline. Patient is now with hematuria. Hemoglobin is stable. He is asymptomatic otherwise. Fluids will be held due to CHF. Could consider switching Brillinta to Plavix or holding ASA. CT abd/pel to be obtained to see if there is obvious source of bleed. CT abd/pel showed no clear source of bleed. Patient has appointment with PCP tomorrow morning and cardiology tomorrow afternoon. patient is stable at this time with intermittent hematuria, stable Hg. Decision to change anticoagulation will be up to them based on their re-evaluation of the patient's symptoms. follow up sooner if symptoms worsen. - Diagnoses Provider Diagnoses: Hematuria, Anticoagulated Discharge ED - Sign-Out/Discharge Documenting (check all that apply): Patient Departure - discharge - Discharge Plan Condition: Stable Disposition: HOME Patient Education Materials: Hematuria (ED) Referrals: Óscar Almazan MD [Primary Care Provider] - 1 Day Additional Instructions: PLEASE FOLLOW UP WITH YOUR PRIMARY CARE PHYSICIAN AND CERTIFED REFRIGERATION OPERATOR TOMORROW MORNING AND AFTERNOON WITH REGARDS TO YOUR BRILLINTA AND ASPIRIN. PLEASE RETURN TO ED FOR ANY NEW OR WORSENING SYMPTOMS. - Billing Disposition and Condition Condition: STABLE Disposition: Home - Attestation Statements Document Initiated by Logan: Yes Documenting Scribe: LAW MCDONOUGH Provider For Whom Logan is Documenting (Include Credential): AUGUSTO MADERA MD Scribe Attestation: LAW Jorgensen, scribed for AUGUSTO MADERA MD on 01/24/20 at 1910. Scribe Documentation Reviewed: Yes Provider Attestation: The documentation as recorded by the LAW atkins accurately reflects the service I personally performed and the decisions made by me, AUGUSTO MADERA MD Status of Scribe Document: Viewed
[2020-01-24 02:47] VITALS: BP 103/64
== END 2020-01-24 02:54 | disposition home or self-care (01) ==
LOC: ED 21:07
DX: R31.9 Hematuria, unspecified (principal); K76.89 Other specified diseases of liver; N20.0 Calculus of kidney; I50.9 Heart failure, unspecified; I25.2 Old myocardial infarction; Z85.46 Personal history of malignant neoplasm of prostate; Z79.01 Long term (current) use of anticoagulants; Z79.82 Long term (current) use of aspirin; Z79.899 Other long term (current) drug therapy
CPT/HCPCS: 36415; 74177; 80053; 81003; 81015; 85025; 85610; 99283; Q9967